=== PATIENT | female | born 1940 ===

== ENCOUNTER 2018-09-28 13:36 | Day surgery (SDC) | payer MEDICARE, BC ==
--- NOTE | 2018-09-26 14:19 | HP ---
CC: Dr. Fay Malone * PREOPERATIVE HISTORY AND PHYSICAL: DATE OF ADMISSION: 09/28/18 This patient is scheduled for same-day surgery admission by Dr. Cintron, on 09/28/18. DATE OF PREOPERATIVE HISTORY AND PHYSICAL EXAMINATION: 09/26/18 ATTENDING SURGEON: Dr. Heather Cintron * (dictated by Anitha Shearer NP). CHIEF COMPLAINT: Left nipple discharge. HISTORY OF PRESENT ILLNESS: The patient is a 78-year-old female, recently evaluated by Dr. Cintron, for left nipple discharge. The patient states that about a month ago, she started noticing spontaneous and clear discharge from the left nipple. She has not noticed any bloody drainage. She thinks it is from more than 1 duct but she is not sure. She also has noticed that the left nipple has been somewhat discolored and inverted. She states that that has been going on for several months and perhaps more than a year. She denies being aware of any lumps in the breast and has had a mammogram and ultrasound, both of which she states were negative. She denies any other breast changes, has never had radiation to the chest, and has never had a previous breast biopsy. She has been on some form of estrogen for many years since about age 51 but she stopped it a month ago. She was age 10 with her first menstrual period; she was 21 with the of her first child, and she did breastfeed. She underwent hysterectomy at age 29 due to dysplasia. Family history of breast cancer is in a paternal aunt who had it diagnosed when she was older, her sister is from ovarian cancer at age 79. [address] Cintron examined the patient and noted that the left nipple is inverted; palpation of the left breast reveals no discrete masses; with manipulation of the left nipple, there is a small amount of clear discharge from a duct on the medial aspect of the nipple, and this discharge was heme-negative. Dr. Cintron discussed the findings with her and has recommended left breast terminal duct excision and nipple biopsy as a same-day surgery procedure. Dr. Cintron described the nature of the surgical procedure, the rationale for the procedure, the relevant risks and benefits, and today I reviewed the expected postoperative care and recovery. The patient has had a chance to ask questions and stated that she understands the information and is satisfied with the answers given to her questions. She will sign surgical consent on the day of surgery. PAST MEDICAL HISTORY: Significant for hypertension; she fell and hit her head in July 2017 and then in November 2017 was found to have a delayed subdural hematoma from a slow leak and underwent drainage of the subdural hematoma at [facility]. She also has urinary incontinence and osteoarthritis. In February 2018, she was hospitalized at [facility] with sepsis related to urinary tract infection and pneumonia and was hospitalized for 5 days ; she did not require intubation at that time. 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 OBSTETRIC HISTORY: 5 para 3, miscarriage 2. MEDICATIONS: 1. Enablex 7.5 mg daily in the morning. 2. Atorvastatin 20 mg p.o. daily at bedtime. 3. Diltiazem ER 180 mg daily in the morning. She takes the following supplements: Vitamin B12, Osteo Bi-Flex, Centrum Silver. ALLERGIES: KEFLEX caused hives; OPIOIDS caused severe nausea. FAMILY HISTORY: Her sister is at age 79 from ovarian cancer; a paternal great aunt was diagnosed with breast cancer in her older years; no known bleeding tendencies, clotting disorders, or anesthesia complications in the family. SOCIAL HISTORY: She is and has never been a smoker. She denies the use of alcohol or other substances. REVIEW OF SYSTEMS: Constitutional: No fevers, chills, excessive fatigue, or weight loss. Endocrine: No diabetes or thyroid disease. Hematologic: She states that she bruises and bleeds easily. She has never required a blood transfusion. Breasts: As described in history of present illness, abnormal left breast. Respiratory: Dyspnea with exercise exertion. No chronic cough. Cardiovascular: No anginal chest pain, no palpitations, no chest pressure, no history of myocardial infarction. Gastrointestinal: No nausea, vomiting, diarrhea, GI bleeding, or constipation. Genitourinary: No dysuria. Musculoskeletal: Osteoarthritis with mild joint pain. Neurologic: History of subdural hematoma, November 2017, which presented with a shuffling gait and was thought to be related to a fall when she hit her head in July 2017; she underwent drainage of the subdural hematoma and has had no residual neurologic deficits. She denies any blurred vision but states when she takes her glasses off, she has diplopia. She has no areas of focal weakness or numbness. Her gait is normal. General: No previous anesthesia complications. No history of deep vein thrombosis or pulmonary embolism. PHYSICAL EXAMINATION GENERAL SURVEY: The patient is a 78-year-old female, well-developed, well- nourished, in no acute distress. VITAL SIGNS: Height 63 inches, weight 154 pounds, body mass index 27.3. Blood pressure 138/78; pulse 62 and regular; respiratory rate 16; temperature 98, tympanic. HEENT: Benign. NECK: Supple. No cervical lymphadenopathy. No thyromegaly. Trachea midline. BACK: No CVA tenderness. LUNGS: Breath sounds bilaterally clear and equal. BREASTS: Essentially symmetric; there is no skin dimpling; the left nipple is inverted and with manipulation, produces a small amount of clear discharge from a duct on the medial aspect of the nipple; the left nipple surface is notable for a pebbly surface without excoriation and there is purplish discoloration inferiorly; the clear charge is heme-negative. Palpation of the left breast reveals no discrete masses. Palpation of the right breast reveals no discrete masses. There is no axillary adenopathy bilaterally. There is no supraclavicular adenopathy bilaterally. HEART: Regular rate and rhythm. No murmurs or rubs appreciated. ABDOMEN: Active bowel sounds. Soft, nondistended, nontender throughout. No obvious masses, organomegaly, or evidence of umbilical hernia. EXTREMITIES: Warm without edema or skin ulcerations. There is a healing lesion on the pretibial region of the right lower extremity status post removal of seborrheic keratosis recently. No infection. PELVIC: Deferred. RECTAL: Deferred. NEUROLOGIC: Alert and oriented x 3. Pupils are equal and reactive and gait is steady. SKIN: Warm, dry, intact. IMPRESSION: Left nipple discharge. PLAN: Same-day surgery admission to Dr. Cintron's service on 09/28/18, for left breast terminal duct excision and nipple biopsy. ERICA SHEARER NP [id number]/[facility] #: [id number] [facility] HOSPITALHiro
[~2018-09-28 13:36] MED LIST: Acetaminophen TAB* 325 MG PO ONE; Buffered Lidocaine 0.9% SYRIN* 5 ML/SYR SYRINGE INTRADERM ONE; Lactated Ringers 1000 ML Bag* 1,000 ML IV SCH
[2018-09-28] MEDS ORDERED: Clindamycin 900 MG/D5W BAG(*) 900 MG/50 ML BAG IVPB ONE (14:28)
[2018-09-28] MEDS ORDERED: Acetaminophen TAB* 325 MG ONE (14:28)
[2018-09-28] MEDS ORDERED: fentaNYL* 50 MCG/ML 2 ML VIAL (100 MCG VIAL) ONE (14:51)
[2018-09-28] MEDS ORDERED: Midazolam* 1 MG/ML 2 ML VIAL (2 MG) ONE (14:51)
[2018-09-28] MEDS ORDERED: Buffered Lidocaine 1% SYRIN* 1 ML/SYRINGE ONE (14:53)
[2018-09-28] MEDS ORDERED: Lidocaine 2% PF * 5 ML VIAL ONE (15:38)
[2018-09-28] MEDS ORDERED: Dexamethasone IV* 4 MG/ML 1 ML (4 MG) ONE (15:46)
[2018-09-28] MEDS ORDERED: Ondansetron INJ* 2 MG/ML VIAL ONE (15:46)
[2018-09-28] MEDS ORDERED: Propofol* 10 MG/ML 20 ML BTL ONE (15:46)
[2018-09-28] MEDS ORDERED: Famotidine IV* 10 MG/ML 2 ML (20 mg) ONE (15:46)
[2018-09-28] MEDS ORDERED: KETAMINE HCL* 50 MG/ML 10 ML VIAL ONE (15:47)
[2018-09-28] MEDS ORDERED: Bupivacaine 0.5%* 50 ML VIAL ONE (15:54)
[2018-09-28] MEDS ORDERED: Levalbuterol 0.63MG/3ML NEB* UNIT OF USE INH PRN (15:57)
[2018-09-28] MEDS ORDERED: Ondansetron INJ* 2 MG/ML VIAL IV PRN (15:57)
[2018-09-28] MEDS ORDERED: fentaNYL* 50 MCG/ML 2 ML VIAL (100 MCG VIAL) IV PRN (15:57)
[2018-09-28] MEDS ORDERED: diPHENhydraMINE IV* 50 MG/ML 1 ml VIAL (BENADRYL) IV PRN (15:57)
[2018-09-28] MEDS ORDERED: Naloxone* 0.4 MG/ML 1 ML VIAL IV PRN (15:57)
[2018-09-28] MEDS ORDERED: PROCHLORPERAZINE INJ 5 MG/ML 2 ML VIAL IV PRN (15:57)
[2018-09-28] MEDS ORDERED: Acetaminophen TAB* 325 MG PO PRN ×2 (15:57→17:12)
[2018-09-28] MEDS ORDERED: DiMENhydriNATE IV* 50 MG/ML VIAL IV PUSH PRN (15:57)
[2018-09-28] MEDS ORDERED: EPHEDrine (Pressors)* 50 MG/ML VIAL ONE (16:14)
[2018-09-28] MEDS ORDERED: Ketorolac INJ* 30 MG/ML 1 ML VIAL ONE (16:32)
--- NOTE | 2018-09-28 17:03 | OP ---
Operative Report - Blank - Operative Report Date of Operation: 09/28/18 Note: Brief Operative Note Preop Dx: Left nipple discharge Postop Dx: same Procedure: Left terminal duct excision; left nipple biopsy Anesthesia: GET Surgeon: Abdulaziz Parachute Crown Sewer: TERRENCE Jessica Fluids: 700 ml RL EBL: < 10 ml Specimen: Left nipple biopsy; Left terminal duct and specimen deep to terminal duct Drains: none Findings: dictated
--- NOTE | 2018-09-28 17:10 | BRIEFOPN ---
Brief Operative Note - Surgery Procedures: 09/28/18 Op Note Pre-op dx: left breast nipple discharge and nipple abnormality Post-op dx: same Procedure: left breast terminal duct excision and nipple biopsy Surgeon: Abdulaziz Asst: Aracely Anesth: general EBL: 10 cc SCDs on during surgery Abx: given pre-op Complications: none Pt. tolerated procedure well and was transferred to in a stable condition. CLFoster
[2018-09-28 17:49] VITALS: BP 134/82
--- NOTE | 2018-09-28 21:12 | OP ---
CC: [facility]; Dr. Fay Malone * DATE OF OPERATION: 09/28/18 - [facility] DATE OF : 38. SURGEON: Heather Cintron MD. DEBURRING TECHNICIAN: TERRENCE Patel. PRE-OP DIAGNOSIS: Left breast nipple discharge and nipple abnormality. POST-OP DIAGNOSIS: Left breast nipple discharge and nipple abnormality. OPERATIVE PROCEDURE: Left breast terminal duct excision and nipple biopsy. INDICATIONS: Ms. Garcia is a 78-year-old woman who presented to the office with a complaint of nipple discharge. This was associated with an inverted nipple and an abnormal texture to the nipple itself. This prompted the plan for surgical intervention. DESCRIPTION OF PROCEDURE: She was brought to the operating room, placed on the OR table in a supine position and given general anesthesia. The left breast was prepped and draped in the usual sterile fashion. After infiltrating with local anesthetic, a lacrimal probe was inserted into the duct that produced the discharge. Then, a curvilinear circumareolar incision was made. Subcutaneous tissue was then divided with a combination of sharp, blunt, and electrocautery dissection to expose the underside of the nipple where the duct that contained the probe was visualized. It was noted to be a very dilated duct with clear fluid consistent with the discharge. The duct was isolated using blunt dissection and then attention was turned to the nipple biopsy. A wedge of nipple skin was excised sharply. This was pushed through to the underside of the areola and then divided from the surrounding tissue and handed off as a specimen labeled nipple biopsy. The duct involved was divided and using electrocautery, breast tissue from around the duct was excised. Once the specimen was out, it was marked in the usual fashion with the additional notation of a double stitch marking the duct. At the deep aspect of the specimen, there was noted to be some fibrous gritty tissue that was thought to be a little suspicious, so an additional specimen was removed using electrocautery, marked in the usual fashion and handed off labeled additional tissue deep to and adjacent to the other breast specimen. Hemostasis was then assured with electrocautery. The nipple defect was closed with interrupted 4-0 Vicryl stitches and then additional local was instilled into the cavity and closure was accomplished with 3-0 Vicryl in the subcutaneous layer and the skin was closed with 4-0 Prolene in a subcuticular fashion. Steri-Strips and a dry sterile dressing were applied. All sponge and instrument counts were correct. The patient tolerated the procedure well and was transferred to Recovery in a stable condition. [id number]/[facility] #: [id number] MTDD
== END 2018-09-28 18:09 | disposition home or self-care (01) ==
LOC: OR 13:36
PROVIDERS: ATTEND Surgery
DX: N64.52 Nipple discharge (principal); N60.42 Mammary duct ectasia of left breast; I10 Essential (primary) hypertension; J45.909 Unspecified asthma, uncomplicated; G47.33 Obstructive sleep apnea (adult) (pediatric); I34.1 Nonrheumatic mitral (valve) prolapse; E55.9 Vitamin D deficiency, unspecified
CPT/HCPCS: 88305; 88307; A9270-GY; J1100; J1885; J2250; J2405; J2704; J3010